=== PATIENT | female | born 1960 | race Caucasian/White ===

== ENCOUNTER 2017-01-10 11:59 | Emergency (ER) | payer OTHER ==
[2017-01-10 11:59] VITALS: BP 147/89
[2017-01-10] MEDS ORDERED: DIPHTH,PERTUSS(ACELL),TET TOX 0.5 ML DISP.SYRIN. VAX IM ONE ×2 (12:31→12:45)
--- NOTE | 2017-01-10 17:14 | ED.ADGEN ---
Past History Past Medical History: No Pertinent History Adult General Chief Complaint Chief Complaint Left foot pain HPI HPI Patient is a 56 year old female who presents with left foot pain. Patient was at work when she stepped over onto a raised surface that had a nail in it that went through her shoe and punctured her distal plantar foot. She initially had some bleeding, she had the nail intact out of her foot, she irrigated her foot with Betadine. It is painful to walk on the foot. She reports her tetanus was updated 5 years ago. No other injuries, did not fall or hurt herself. The nail did go through her hard- soled shoe Review of Systems Review of Systems Constitutional: Denies fever or chills [] Eyes: Denies change in visual acuity, redness, or eye pain [] HENT: Denies nasal congestion or sore throat [] Respiratory: Denies cough or shortness of breath [] Cardiovascular: denies chest pain Neurologic: Denies headache, focal weakness or sensory changes [] Endocrine: Denies polyuria or polydipsia [] Current Medications Current Medications Current Medications Medications (Trade) Dose Ordered Sig/[place] Start Time Stop Time Status Last Admin Dose Admin Diphtheria/ Tetanus/Acell Pertussis (Boostrix) 0.5 ml STK-MED ONCE 01/10/17 12:31 01/10/17 12:32 DC Allergies Allergies Allergies Coded Allergies Type Severity Reaction Last Updated Verified iodine Allergy Unknown 05/25/15 Yes morphine Allergy Unknown 05/25/15 Yes Uncoded Allergies Type Severity Reaction Last Updated Verified PAPER TAPE Allergy Unknown 05/25/15 Physical Exam Physical Exam Constitutional: Well developed, well nourished, no acute distress, non-toxic appearance. [] HENT: Normocephalic, atraumatic, Cardiovascular:Heart rate regular with regular rhythm Lungs & Thorax: no respiratory distress Extremities: left foot without signs of puncture, ttp, no fluctuance, pulse intact, FROM, wiggles toes, cap refill <3 sec Neurologic: Alert and oriented X 3, normal motor function, normal sensory function, no focal deficits noted. [] Psychologic: Affect normal, judgement normal, mood normal. [] EKG EKG [] Radiology/Procedures Radiology/Procedures [] Course & Med Decision Making Course & Med Decision Making Pertinent Labs and Imaging studies reviewed. (See chart for details) pt is ambulatory and no signs of bony injury or significant soft tissue injury. tdap updated, pt declined pain medication. I recommended pt keep close watch for any signs of infection and return if she sees any, notify provider that nail went thru sole of shoe. Final Impression Final Impression left plantar surface puncture[] Problems: Dragon Disclaimer Dragon Disclaimer This electronic medical record was generated, in whole or in part, using a voice recognition dictation system. SHANNAN BARRON MD Jan 10, 2017 17:13
== END 2017-01-10 12:45 | disposition home or self-care (01) ==
LOC: ER 11:59
DX: S91.332A Puncture wound without foreign body, left foot, initial encounter (principal); Z91.041 Radiographic dye allergy status; Z88.5 Allergy status to narcotic agent; Z91.048 Other nonmedicinal substance allergy status; W22.8XXA Striking against or struck by other objects, initial encounter; Y93.89 Activity, other specified; Y99.8 Other external cause status; Y92.89 Other specified places as the place of occurrence of the external cause
CPT/HCPCS: 90471; 90715; 99283-25

== ENCOUNTER → 2017-02-22 | Outpatient (CLI) | payer OTHER ==
[2017-02-22 07:56] LABS: ALBUMIN 3.9 g/dL (3.4-5.0); ALBUMIN/GLOBULIN RATIO 1.1 (1.0-1.7); CALCIUM 9.2 mg/dL (8.5-10.1); CREATININE 0.8 mg/dL (0.6-1.0); GFR 74.5; PHOSPHORUS 4.2 mg/dL (2.6-4.7); POTASSIUM 3.9 mmol/L (3.5-5.1); TOTAL BILIRUBIN 0.6 mg/dL (0.2-1.0); TOTAL PROTEIN 7.3 g/dL (6.4-8.2)
[2017-02-22 13:33] LABS: FREE T4 1.03 ng/dL (0.76-1.46); THYROID STIM HORMONE (TSH) 1.434 uIU/mL (0.358-3.740)
[2017-02-23 08:10] LABS: CALCIUM PTH 9.6 mg/dL (8.7-10.2); CREATININE PTH 0.77 mg/dL (0.57-1.00); PTH INTACT 23 pg/mL (15-65)
== END | disposition home or self-care (01) ==
LOC: LAB 07:00
PROVIDERS: ATTEND Specialist
DX: M81.8 Other osteoporosis without current pathological fracture (principal)
CPT/HCPCS: 80053; 83970; 84100; 84439; 84443

== ENCOUNTER → 2017-04-12 | Outpatient (CLI) | payer OTHER ==
--- NOTE | 2017-04-12 13:07 | RAD ---
Left breast ultrasound, 04/12/2017: History: Lateral breast nodularity The patient has undergone a previous left mastectomy with reconstruction and a breast implant in place. The area of clinical concern laterally extending into the axillary region was carefully scanned. No mass or abnormal fluid collection is seen within the soft tissues at this level. There is a small rounded structure within the anterior aspect of the breast implant superolaterally. This is likely related to infolding of the implant or a small intracapsular rupture. IMPRESSION: 1. Mild implant irregularity as described above. 2. No soft tissue mass is identified.
== END | disposition home or self-care (01) ==
LOC: US 10:14
PROVIDERS: ATTEND Internal Medicine Hematology & Oncology
DX: Z51.81 Encounter for therapeutic drug level monitoring (principal); N63 Unspecified lump in breast; C50.912 Malignant neoplasm of unspecified site of left female breast; D12.6 Benign neoplasm of colon, unspecified; Z79.811 Long term (current) use of aromatase inhibitors; Z90.12 Acquired absence of left breast and nipple; Z98.82 Breast implant status
CPT/HCPCS: 76641

== ENCOUNTER → 2017-11-22 | Outpatient (CLI) | payer OTHER ==
--- NOTE | 2017-11-22 14:19 | RAD ---
Right leg venous Doppler study: Clinical indications: Right leg swelling and pain. Right groin pain for 2 days. History of pulmonary emboli. Findings: Duplex sonography (including cowart scale evaluation and color flow and waveform spectral analysis) of the proximal aspect of the greater saphenous vein and proximal aspect of the profunda femoral vein and the entire length of the common femoral and superficial femoral and popliteal veins and the tibioperoneal trunk and the proximal aspect of the posterior tibial and peroneal veins of the right leg was performed. Normal compressibility, augmentation of color Doppler flow after calf compression, and respiratory variation of Doppler flow is seen. Thus, there are no sonographic findings of deep venous thrombosis within these veins. Impression: There are no sonographic findings of deep venous thrombosis within the veins discussed above of the right lower extremity.
== END | disposition home or self-care (01) ==
LOC: US 12:22
PROVIDERS: ATTEND Neuromusculoskeletal Medicine & OMM
DX: M79.604 Pain in right leg (principal); M79.89 Other specified soft tissue disorders; R10.31 Right lower quadrant pain; Z86.711 Personal history of pulmonary embolism
CPT/HCPCS: 93971

== ENCOUNTER → 2017-12-13 | Outpatient (CLI) | payer OTHER | END | disposition home or self-care (01) | LOC: LAB 08:32 | PROVIDERS: ATTEND Plastic Surgery | DX: J02.9 Acute pharyngitis, unspecified (principal) | CPT/HCPCS: 87070; 87880 ==

== ENCOUNTER 2018-04-26 08:00 | Emergency (ER) | payer OTHER ==
[~2018-04-26] VITALS: Ht 162.6 cm; Wt 65.8 kg
[2018-04-26 08:09] VITALS: BP 163/85
--- NOTE | 2018-04-26 08:43 | PHYS DOC ---
Past History Past Medical History: Cancer Past Surgical History: Other Smoking: Non-smoker Alcohol Use: Occasionally Drug Use: None Adult General Chief Complaint Chief Complaint: KNEE INJURY HPI HPI Patient is a [57] year old [female] who presents with a pending of right knee pain. Patient states she usually cycles but for the last 2 weeks she decided to run and started to run about 2 miles every other day[. Patient complaining of gradual onset of right knee pain for the last 4 days known injury. Patient complaining of increasing pain with flexion. Knee and bearing weight. Patient states she took Advil last night with no change of her pain. Patient complaining of 'tingling' feeling in her foot. Review of Systems Review of Systems Constitutional: Denies fever or chills [] Eyes: Denies change in visual acuity, redness, or eye pain [] HENT: Denies nasal congestion or sore throat [] Respiratory: Denies cough or shortness of breath [] Cardiovascular: No additional information not addressed in HPI [] GI: Denies abdominal pain, nausea, vomiting, bloody stools or diarrhea [] : Denies dysuria or hematuria [] Musculoskeletal: Denies back pain, reports joint pain [] Integument: Denies rash or skin lesions [] Neurologic: Denies headache, focal weakness or sensory changes [] Endocrine: Denies polyuria or polydipsia [] All other systems were reviewed and found to be within normal limits, except as documented in this note. Allergies Allergies Allergies Coded Allergies Type Severity Reaction Last Updated Verified iodine Allergy Unknown 05/25/15 Yes morphine Allergy Unknown 05/25/15 Yes Uncoded Allergies Type Severity Reaction Last Updated Verified PAPER TAPE Allergy Unknown 05/25/15 Physical Exam Physical Exam Constitutional: Well developed, well nourished, no acute distress, non-toxic appearance. [] HENT: Normocephalic, atraumatic[] Eyes: PERRLA, EOMI, conjunctiva normal, no discharge. [] Neck: Normal range of motion, no tenderness, supple, no stridor. [] Cardiovascular:Heart rate regular rhythm, no murmur [] Lungs & Thorax: Bilateral breath sounds clear to auscultation [] Skin: Warm, dry, no erythema, no rash. [] Back: No tenderness, no CVA tenderness. [] Extremities: Right knee without deformity or edema or ecchymosis, tenderness in the lower and anteromedial side of the patella, no cyanosis, no clubbing, ROM imitate with pain, no edema. [] Neurologic: Alert and oriented X 3, normal motor function, normal sensory function, no focal deficits noted. [] Psychologic: Affect normal, judgement normal, mood normal. [] Current Patient Data Vital Signs Vital Signs Date Time Temp Pulse Resp B/P (MAP) Pulse Ox O2 Delivery O2 Flow Rate FiO2 04/26/18 08:09 77 18 97 Room Air EKG EKG [] Radiology/Procedures Radiology/Procedures [][address] [address] IMAGING REPORT Signed PATIENT: DAVE KIRKPATRICK ACCOUNT: [id number] : 1960 LOCATION: ER AGE: 57 SEX: F EXAM STATUS: REG ER ORD. PHYSICIAN: SAMY MARTIN MD REASON: pain PROCEDURE: KNEE RIGHT 4V Right knee radiograph 04/26/2018 8:16 AM INDICATION: Right knee pain a few times a day. COMPARISON: None available. TECHNIQUE: 4 views of the right knee are provided. FINDINGS: There is no acute fracture or dislocation. Bone mineralization is within normal limits. Joint spaces are maintained. Regional soft tissues are within normal limits. There is no soft tissue gas or osseous erosion. IMPRESSION: No acute fracture or dislocation. Electronically signed by: Bereket Barraza MD (04/26/2018 8:38 AM) [id number] DICTATED AND SIGNED BY: BEREKET BARRAZA MD DATE: 04/26/18 0838 CC: SAMY MARTIN MD; SABIHA WHARTON DO ~ Course & Med Decision Making Course & Med Decision Making Pertinent Imaging studies reviewed. (See chart for details) Evaluation of patient in ER showed 57-year-old female patient with complaining of right knee pain after starting running recently. She had limited range of motion of right knee with tenderness of anterior and lower parts of patella. X- ray was unremarkable. Plan to discharge patient home with diagnosis of patellofemoral syndrome and instruction to avoid of sports and follow up with sports medicine if not getting better. Berny wrap was applied in ER and ice bag provided. Dragon Disclaimer Dragon Disclaimer This electronic medical record was generated, in whole or in part, using a voice recognition dictation system. Departure Departure: Impression: Primary Impression: Patellofemoral syndrome of right knee Disposition: HOME, SELF-CARE (at 0857) Condition: STABLE Referrals: SABIHA WHARTON DO (PCP) Patient Instructions: Patellofemoral Pain, Patellofemoral Syndrome Additional Instructions: Apply ice 30 minutes twice a day on affected area Follow-up with your primary care physician in 3-5 days Return to ER if not getting better Follow-up with sports medicine physician at , call [phone] to make an appointment Avoid of sports and bearing weight on the right knee Scripts Ibuprofen (IBUPROFEN) 600 Mg Tablet 600 MG PO TID, #30 TAB Prov: SAMY MARTIN MD 04/26/18 SAMY MARTIN MD Apr 26, 2018 08:43
[2018-04-26] MEDS ORDERED: IBUP600T16 PO (09:02)
== END 2018-04-26 09:11 | disposition home or self-care (01) ==
LOC: ER 08:00
DX: M22.2X1 Patellofemoral disorders, right knee (principal); Z88.5 Allergy status to narcotic agent; Z91.041 Radiographic dye allergy status
CPT/HCPCS: 73564; 99284

== ENCOUNTER → 2018-11-14 | Outpatient (CLI) | payer OTHER ==
[~2018-11-14] MED LIST: IBUP600T16 PO
[2018-11-14 11:03] LABS: BASO % 1 % (0-3); EOS # 0.1 x10^3/uL (0.0-0.7); EOS % 2 % (0-3); HEMATOCRIT 42.7 % (36.0-47.0); HEMOGLOBIN 14.4 g/dL (12.0-15.5); LYMPH # 0.7 x10^3/uL (1.0-4.8); LYMPH % 21 % (24-48); MEAN CORPUSCULAR HEMOGLOBIN 29 pg (25-35); MEAN CORPUSCULAR HGB CONC 34 g/dL (31-37); MEAN CORPUSCULAR VOLUME 87 fL (79-100); MONO # 0.3 x10^3/uL (0.0-1.1); MONO % 8 % (0-9); NEUT # 2.4 x10^3uL (1.8-7.7); NEUT % 68 % (31-73); PLATELET COUNT 159 x10^3/uL (140-400); RED CELL DISTRIBUTION WIDTH 13.2 % (11.5-14.5); WHITE BLOOD COUNT 3.6 x10^3/uL (4.0-11.0)
[2018-11-14 16:33] LABS: FREE T4 0.84 ng/dL (0.76-1.46); THYROID STIM HORMONE (TSH) 1.678 uIU/mL (0.358-3.740)
== END | disposition home or self-care (01) ==
LOC: LAB 10:44
PROVIDERS: ATTEND Psychiatry & Neurology Neurology
DX: R42 Dizziness and giddiness (principal)
CPT/HCPCS: 36415; 84439; 84443; 85025

== ENCOUNTER → 2018-11-15 | Outpatient (CLI) | payer OTHER ==
--- NOTE | 2018-11-15 11:54 | RAD ---
Bone densitometry 11/15/2018 8:52 AM Indication: OSTEOPOROSIS, SCREENING, OV FAILURE, MULTIPLE OCCURRANCES OF BREAST CA, UTILITY PERSON TAMOXIFIN AND OTHER USAGE
Comparison Study: Results from a bone mineral density study from January 2017 were available for review.. Discussion: Bone Densitometry was performed with dual photon absorption of the lumbar spine and proximal right femur. Lumbar Spine: Bone average density is 0.873g/cm2 for L1-L4. T-Score is -2.6. Right femoral neck: Bone average density is 0.777g/cm2. T-Score is -1.9. On provided materials from prior measurement of the bone mineral density, T score 4 L1-L4 was -3.2. IMPRESSION: Osteoporosis. There appears to be some interval improvement in bone mineral density in the interim available comparison studies. Fracture risk remains high. Note: Definitions established by the World Health Organization: Normal: T-score is -1.0 or above. Osteopenia: T-score is between -1.0 and -2.5. Osteoporosis: T-score is -2.5 or below. Electronically signed by: Marco Stephenson MD (11/15/2018 11:51 AM) [id number]
== END | disposition home or self-care (01) ==
LOC: RAD 07:55
PROVIDERS: ATTEND Physician Assistant Surgical
DX: Z01.89 Encounter for other specified special examinations (principal); M81.0 Age-related osteoporosis without current pathological fracture; Z79.899 Other long term (current) drug therapy; Z85.3 Personal history of malignant neoplasm of breast
CPT/HCPCS: 77080

== ENCOUNTER → 2018-11-22 | Outpatient (CLI) | payer OTHER ==
[~2018-11-22] MED LIST changes: +IOHEXOL 300 MG/ML 75 ML VIAL. IV ONE
--- NOTE | 2018-11-22 16:55 | RAD ---
CTA of the head and neck with contrast, 11/22/2018: HISTORY: Vertigo Multidetector CT imaging was performed following an IV bolus injection of iodinated contrast material. Multiplanar reconstructions were produced including 3-D MIP images. The patient was premedicated with prednisone and Benadryl due to the history of an iodine allergy. There is no significant narrowing of the cervicocephalic arteries at their origins from the aortic arch. The common carotid arteries in the neck are widely patent. No significant narrowing is seen at either carotid bifurcation. The distal internal carotid arteries are widely patent up through the level of the [place]. The anterior cerebral and middle cerebral arteries and their major branches show no significant abnormality. Both vertebral arteries in the neck are patent with dominance of the left vertebral artery. The basilar artery is unremarkable. There is a prominent posterior communicating artery on the right primarily providing the blood supply to the right posterior cerebral artery. This is a normal variant. The posterior cerebral arteries are otherwise unremarkable. Incidental CT findings include the presence of moderate emphysematous changes in the upper lobes. An elongated bandlike opacity in the right upper lobe is probably a thick scar. The paranasal and mastoid sinuses are clear. Mild scattered degenerative changes are present in the cervical spine. IMPRESSION: 1. No significant arterial stenosis in the neck. 2. No major intracranial arterial occlusion or stenosis is identified. 3. origin of the right posterior cerebral artery, which is a normal variant. 4. Pulmonary emphysema with an elongated pulmonary opacity in the right upper lobe which is probably due to scarring. Follow-up imaging may be prudent to exclude a neoplastic etiology. PQRS Compliance Statement: One or more of the following individualized dose reduction techniques were utilized for this examination: 1. Automated exposure control 2. Adjustment of the mA and/or kV according to patient size 3. Use of iterative reconstruction technique Electronically signed by: Wolfgang Platt MD (11/22/2018 4:52 PM) [facility]
== END | disposition home or self-care (01) ==
LOC: CT 10:05
PROVIDERS: ATTEND Psychiatry & Neurology Neurology
DX: R42 Dizziness and giddiness (principal); J43.8 Other emphysema; R91.8 Other nonspecific abnormal finding of lung field
CPT/HCPCS: 70496; 70498; Q9967

== ENCOUNTER → 2018-11-29 | Outpatient (CLI) | payer OTHER ==
--- NOTE | 2018-11-29 15:32 | RAD ---
PQRS Compliance Statement: One or more of the following individualized dose reduction techniques were utilized for this examination: 1. Automated exposure control 2. Adjustment of the mA and/or kV according to patient size 3. Use of iterative reconstruction technique CT CHEST W/CONTRAST Clinical Indication: FOLLOW UP ABNORMAL CT SCAN Comparison: CT angiogram head and neck with contrast, 11/22/2018. TECHNIQUE: Helical CT imaging of the chest is performed after 75 cc Omnipaque 300 IV contrast. Findings: Small benign calcification in the left thyroid lobe. Bilateral intact breast implants. Bilateral axillary surgical clips. The great vessels are normal caliber. No adenopathy in the chest. Cardiac size normal, no pericardial effusion. No pleural effusion. The central airways are patent. Linear opacity in the right lung apex is stable. There is a nodular component centrally that measures 8 x 10 mm, image 21. Finding not present on CT from 2015. There is a 4 mm nodule the right middle lobe, image 75. There is mild centrilobular emphysema. Minimal scarring in the inferior lingula. Visualized upper abdomen is unremarkable. No acute bone abnormality. IMPRESSION: 1. Nodular and linear opacity in the right lung apex. Scarring or malignancy are considerations. Recommend CT chest follow-up in 3 months. 2. There is a 4 mm noncalcified nodule in the right middle lobe. 3. Mild centrilobular emphysema. Electronically signed by: Luis Alberto Torres MD (11/29/2018 3:29 PM) [id number]
== END | disposition home or self-care (01) ==
LOC: CT 06:23
PROVIDERS: ATTEND Registered Nurse
DX: J43.2 Centrilobular emphysema (principal); R91.1 Solitary pulmonary nodule; R91.8 Other nonspecific abnormal finding of lung field; E07.89 Other specified disorders of thyroid
CPT/HCPCS: 71260; Q9967

== ENCOUNTER 2018-12-20 09:00 | Emergency (ER) | payer OTHER ==
[~2018-12-20] VITALS: Ht 162.6 cm; Wt 70.2 kg
[~2018-12-20 09:00] MED LIST changes: -IOHEXOL 300 MG/ML 75 ML VIAL. IV ONE
--- NOTE | 2018-12-20 09:11 | PHYS DOC ---
Past History Past Medical History: Cancer Past Surgical History: Other Smoking: Non-smoker Alcohol Use: Occasionally Drug Use: None Adult General Chief Complaint Chief Complaint: POST-OP PROBLEM HPI HPI 58-year-old female presents with right-sided chest pain and pain with breathing. The patient had a lung biopsy 2 days ago followed by a pneumothorax. A small chest tube was placed in the anterior chest wall at that time. This was in for a little over 24 hours. It was removed yesterday around noon. The patient had an okay evening and was able to sleep last night. When she woke up this morning she had significant increase in the right-sided chest pain as well as pain with breathing. She was advised to come to the hospital she had these kinds of symptoms. The patient has a history of breast cancer and has saline breast implants. She also noticed this morning that the right implant seems to be deflating because it is different than the left. She denies fever or chills. Review of Systems Review of Systems Constitutional: Denies fever or chills [] Eyes: Denies change in visual acuity, redness, or eye pain [] HENT: Denies nasal congestion or sore throat [] Respiratory: shortness of breath [] Cardiovascular: No additional information not addressed in HPI [] GI: Denies abdominal pain, nausea, vomiting, bloody stools or diarrhea [] : Denies dysuria or hematuria [] Musculoskeletal: Denies back pain or joint pain [] Integument: Denies rash or skin lesions [] Neurologic: Denies headache, focal weakness or sensory changes [] Endocrine: Denies polyuria or polydipsia [] All other systems were reviewed and found to be within normal limits, except as documented in this note. Allergies Allergies Allergies Coded Allergies Type Severity Reaction Last Updated Verified iodine Allergy Unknown 05/25/15 Yes morphine Allergy Unknown 05/25/15 Yes Uncoded Allergies Type Severity Reaction Last Updated Verified PAPER TAPE Allergy Unknown 05/25/15 Physical Exam Physical Exam Constitutional: Well developed, well nourished, no acute distress, non-toxic appearance. [] HENT: Normocephalic, atraumatic, bilateral external ears normal, oropharynx moist, no oral exudates, nose normal. [] Eyes: PERRLA, EOMI, conjunctiva normal, no discharge. [] Neck: Normal range of motion, no tenderness, supple, no stridor. [] Cardiovascular:Heart rate regular rhythm, no murmur [] Lungs & Thorax: tegaderm and gauze over anterior chest tube site. Right breast more flaccid than left. Lungs clear to auscultation bilaterally.[] Abdomen: Bowel sounds normal, soft, no tenderness, no masses, no pulsatile masses. [] Skin: Warm, dry, no erythema, no rash. [] Back: No tenderness, no CVA tenderness. [] Extremities: No tenderness, no cyanosis, no clubbing, ROM intact, no edema. [] Neurologic: Alert and oriented X 3, normal motor function, normal sensory function, no focal deficits noted. [] Psychologic: Affect normal, judgement normal, mood normal. [] EKG EKG [] Radiology/Procedures Radiology/Procedures [] Impressions: AP portable chest radiograph 12/19/2018 Clinical History: Shortness of breath. History of recent lung biopsy on the right performed at with development of the pneumothorax. Post removal of the chest tube and discharge from yesterday.. An AP erect portable digital radiograph of the chest was obtained. Comparison is made to patient's CT scan of the chest dated 11/29/2018. The cardiac and mediastinal silhouettes are within normal limits in size and configuration. No acute pulmonary infiltrate is seen. No pneumothorax or pleural effusion is noted. The osseous structures are unchanged. Surgical clips overlie the right axilla. IMPRESSION: No acute abnormality is seen. Electronically signed by: Taras Lopez MD (12/20/2018 9:35 AM) [id number] DICTATED AND SIGNED BY: TARAS LOPEZ MD DATE: 12/20/18 0935 CC: LORENZO SETH DO; SABIHA WHARTON DO Course & Med Decision Making Course & Med Decision Making Pertinent Labs and Imaging studies reviewed. (See chart for details) Patient's chest x-ray is unremarkable. Based on her exam, she likely has a saline breast implant week. She will call her plastic surgeon about this later today. Her pain has improved. She is greatly reassured. She is stable for discharge at this time. [] Dragon Disclaimer Dragon Disclaimer This electronic medical record was generated, in whole or in part, using a voice recognition dictation system. Departure Departure: Impression: Primary Impression: Chest wall pain following surgery Disposition: HOME, SELF-CARE Condition: STABLE Referrals: SABIHA WHARTON DO (PCP) Patient Instructions: Chest Wall Pain, [id number] LORENZO SETH DO Dec 20, 2018 09:11
--- NOTE | 2018-12-20 09:37 | RAD ---
AP portable chest radiograph 12/19/2018 Clinical History: Shortness of breath. History of recent lung biopsy on the right performed at with development of the pneumothorax. Post removal of the chest tube and discharge from yesterday.. An AP erect portable digital radiograph of the chest was obtained. Comparison is made to patient's CT scan of the chest dated 11/29/2018. The cardiac and mediastinal silhouettes are within normal limits in size and configuration. No acute pulmonary infiltrate is seen. No pneumothorax or pleural effusion is noted. The osseous structures are unchanged. Surgical clips overlie the right axilla. IMPRESSION: No acute abnormality is seen. Electronically signed by: Taras Rivera MD (12/20/2018 9:35 AM) [id number]
[2018-12-20 10:00] VITALS: BP 127/69
== END 2018-12-20 10:00 | disposition home or self-care (01) ==
LOC: ER 09:00
DX: G89.18 Other acute postprocedural pain (principal); R07.1 Chest pain on breathing; J93.9 Pneumothorax, unspecified; Z88.5 Allergy status to narcotic agent; Z88.8 Allergy status to other drugs, medicaments and biological substances
CPT/HCPCS: 71045; 99283

== ENCOUNTER → 2019-02-04 | Outpatient (CLI) | payer OTHER ==
--- NOTE | 2019-02-05 09:23 | RAD ---
Left lower extremity venous duplex study 02/04/2019 Clinical History: Lower extremity pain Technique: Using a combination of real time ultrasound imaging and color-flow and pulse Doppler imaging techniques, including spectral analysis, graded compression and augmentation, duplex evaluation of the deep venous system of the left lower extremity was performed. Multiple images were obtained. Findings: There is no sonographic evidence of deep venous thrombosis involving the visualized deep venous structures of the left lower extremity Impression: No evidence of deep venous thrombosis involving the left lower extremity MTDD
== END | disposition home or self-care (01) ==
LOC: US 12:39
PROVIDERS: ATTEND Family Medicine
DX: M25.462 Effusion, left knee (principal); M25.562 Pain in left knee
CPT/HCPCS: 93971

== ENCOUNTER → 2019-10-03 | Outpatient (CLI) | payer OTHER ==
--- NOTE | 2019-10-03 10:35 | RAD ---
Examination: 3 views of the left foot HISTORY: History of foot pain, injury COMPARISON: None available FINDINGS: The alignment of the tarsal bones, tarsometatarsal joints, metatarsophalangeal, interphalangeal joints grossly appears unremarkable. There is nondisplaced oblique fracture of the base of the fifth metatarsal laterally. Small inferior calcaneal enthesophyte identified. IMPRESSION: 1. Oblique nondisplaced fracture of the base of the fifth metatarsal laterally. Correlate for point tenderness. Electronically signed by: Marcell Matos MD (10/03/2019 10:32 AM) [id number]
== END | disposition home or self-care (01) ==
LOC: RAD 08:15
PROVIDERS: ATTEND Internal Medicine
DX: S92.355A Nondisplaced fracture of fifth metatarsal bone, left foot, initial encounter for closed fracture (principal); W19.XXXA Unspecified fall, initial encounter; Y93.89 Activity, other specified; Y92.89 Other specified places as the place of occurrence of the external cause; Y99.8 Other external cause status
CPT/HCPCS: 73630

== ENCOUNTER → 2019-10-24 | Outpatient (CLI) | payer OTHER ==
--- NOTE | 2019-10-24 16:38 | RAD ---
Examination: Left Lower Extremity Venous Doppler Ultrasound History: Left leg pain Comparison: None Procedure: Mcfarland scale, color flow 2D and spectal waveform analysis images are obtained with and without compression in the area of the common femoral vein, superficial femoral vein - femoral vein junction, main femoral vein (superficial femoral vein) and popliteal vein. Veins of the proximal calf are also imaged. Findings: There is normal duplex flow, color flow and compressibility of all visualized vein segments. No evidence of deep venous thrombus is present. Impression: No evidence of DVT in the left lower extremity venous system. Electronically signed by: Marcell Matos MD (10/24/2019 4:35 PM) [place] [id number]
== END | disposition home or self-care (01) ==
LOC: US 15:52
PROVIDERS: ATTEND Internal Medicine Hematology & Oncology
DX: M79.605 Pain in left leg (principal); C50.011 Malignant neoplasm of nipple and areola, right female breast; C50.012 Malignant neoplasm of nipple and areola, left female breast; B39.9 Histoplasmosis, unspecified
CPT/HCPCS: 93971

== ENCOUNTER → 2019-11-07 | Outpatient (CLI) | payer OTHER ==
--- NOTE | 2019-11-07 09:59 | RAD ---
EXAM: Left lower extremity venous Doppler sonogram. HISTORY: Pain and swelling. TECHNIQUE: Mcfarland scale and color Doppler sonographic evaluation of the left lower extremity veins with spectral waveform analysis was performed. FINDINGS: There is normal color flow, normal compressibility and there are normal spectral waveforms in the common femoral, superficial femoral, popliteal, posterior tibial and greater saphenous veins. IMPRESSION: No Doppler evidence of lower extremity deep venous thrombosis. Electronically signed by: Beverley Marie MD (11/07/2019 9:56 AM) [facility]
== END | disposition home or self-care (01) ==
LOC: RAD 08:29
PROVIDERS: ATTEND Internal Medicine
DX: M79.605 Pain in left leg (principal); Z86.718 Personal history of other venous thrombosis and embolism
CPT/HCPCS: 93971

== ENCOUNTER → 2020-10-21 | Outpatient (CLI) | payer OTHER ==
--- NOTE | 2020-10-21 11:40 | RAD ---
Examination: Left breast/chest wall ultrasound INDICATION: Thickening in the reconstructed left breast following remote bilateral mastectomy for mp ast cancer. COMPARISON: Chest x-ray of 12/19/2018. FINDINGS: Targeted ultrasound of the left reconstructed breast in the area of reported clinical concern in the upper-outer quadrant spanning the 2 through 5:00 o'clock faces was performed and revealed a breast im plant with no sonographic mass, distortion or otherwise suspicious sonographic findings. No fluid col lection. Sonographic survey of the left axilla revealed no adenopathy. IMPRESSION: Negative targeted ultrasound of the left reconstructed breast. No evidence of malignancy. BI-RADS Category 2 Benign findings Recommend clinical management which should include biopsy if there are any clinically suspicious find ings. Electronically signed by: Deo Ryan MD (10/21/2020 11:38 AM) [id number]
== END ==
LOC: US 06:51
PROVIDERS: ATTEND Internal Medicine Hematology & Oncology
DX: C50.812 Malignant neoplasm of overlapping sites of left female breast (principal); N64.59 Other signs and symptoms in breast; Z17.0 Estrogen receptor positive status [ER+]
CPT/HCPCS: 76604

== ENCOUNTER → 2021-06-15 | Outpatient (CLI) | payer OTHER ==
--- NOTE | 2021-06-15 14:03 | RAD ---
XR SACRUM AND COCCYX 2+VIEWS Clinical indications: Reason: SACRAL PAIN X WEEK, CANCER HISTORY / Spl. Instructions: / History: Findings: No acute fracture or osteolytic process is evident. No diastases of either SI joint is see n. No erosive arthropathy or ankylosis of either SI joint is seen. IMPRESSION: No acute osseous abnormality is evident. Electronically signed by: Shilo Rascon MD (06/15/2021 2:01 PM) [id number]
--- NOTE | 2021-06-15 14:34 | RAD ---
XR SACRUM AND COCCYX 2+VIEWS Clinical indications: Reason: SACRAL PAIN X WEEK, CANCER HISTORY / Spl. Instructions: / History: Findings: No acute fracture or osteolytic process is evident. No diastases of either SI joint is seen. No erosive arthropathy or ankylosis of either SI joint is seen. IMPRESSION: No acute osseous abnormality is evident. MTDD
--- NOTE | 2021-06-15 14:37 | RAD ---
EXAM: DUAL ENERGY X-RAY ABSORPTIOMETRY (DEXA). HISTORY: Postmenopausal screening. FINDINGS: The lowest measured T-score is -2.8 in the lumbar spine, based on a bone mineral density of 0.840 g/cm^2. Refer to the worksheets for full detail. There has been a 3.8 percent decrease in density of the lumbar spine and 2.3 percent decrease in dens ity of the right hip compared to a baseline study performed 11/15/2018. IMPRESSION: 1. Osteoporosis. Bone mineral density yields a T-score of -2.5 or less. Fracture risk is high. 2. FRAX report: Not calculated. METHODOLOGY: Dual energy x-ray absorptiometry was performed to measure bone mineral density. The foll owing analysis is based on the 2019 Official Positions of the International Society for Clinical Dens itometry: Measurements of the hips and the average of L1-L4 are preferred. When the spine and/or hip cannot be feasibly measured or interpreted, or in the setting of hyperparathyroidism, distal radial bone minera l density may be measured. The lumbar spine T-score is based on the average bone mineral density of L1-L4. In the setting of art ifact or anatomic abnormality, some lumbar levels may be excluded, and the remaining levels used for calculation. A single lumbar level is not used for diagnosis, and if only a single level is available for assessment, another anatomic site will be used to assign a diagnosis. The hip T-score is based on the bone mineral density measurement of the femoral neck or total proxima l femur of either side, whichever is lowest. Bilateral mean values are not used for diagnosis. The forearm T-score is derived from 33% of the distal radius of the nondominant forearm. Electronically signed by: Beverley Marie MD (06/15/2021 2:34 PM) [id number]
== END ==
LOC: LAB 10:30
PROVIDERS: ATTEND Registered Nurse
DX: M81.0 Age-related osteoporosis without current pathological fracture (principal); M53.3 Sacrococcygeal disorders, not elsewhere classified
CPT/HCPCS: 72202; 72220; 77081